=== PATIENT | female | born 1990 | race African-American/Black ===

== ENCOUNTER 2018-07-09 21:47 | Emergency (ER) | payer SELFPAY ==
[~2018-07-09] VITALS: Ht 157.5 cm; Wt 72.6 kg
--- NOTE | 2018-07-09 22:00 | NUR ---
ED Nurse Note: ambulated in to ER due to cough and headache x 2 days.
[2018-07-09 22:02] VITALS: BP 122/85
[2018-07-09] MEDS ORDERED: DEPO-PROVE150 MG/11 IM (22:02)
[2018-07-09] MEDS ORDERED: PROMETHAZINE-C118 M1 ORAL (22:35)
--- NOTE | 2018-07-09 22:36 | Emergency Room Report ---
History of Present Illness General Chief Complaint: Upper Respiratory Illness Source: Patient Present Illness HPI Is a 27-year-old female with no past medical history. She presents with chief complaint of a cough and headache. Onset for last 2 days. Worse with lying flat. No fever chills but no nausea no vomiting. Denies any other complaint. Allergies: Coded Allergies: GUAIFENESIN (Verified Allergy, Unknown, 07/09/18) Patient History Past Medical History: see triage record, old chart reviewed Past Surgical History: none Pertinent Family History: none Social History: Denies: smoking Last Menstrual Period: 06/23/18 Now: No Immunizations: other Reviewed Nursing Documentation: PMH: Agreed; PSxH: Agreed Nursing Documentation-PMH Past Medical History: No Stated History Review of Systems Eye: Denies: eye pain, blurred vision ENT: Denies: ear pain, nose congestion, throat swelling Respiratory: Reports: cough; Denies: shortness of breath Cardiovascular: Denies: chest pain, palpitations Gastrointestinal: Denies: abdominal pain, diarrhea, nausea, vomiting Musculoskeletal: Denies: back pain, joint pain Skin: Denies: rash Neurological: Denies: headache, numbness Endocrine: Denies: increased thirst, increased urine Hematologic/Lymphatic: Denies: easy bruising All Other Systems: negative except mentioned in HPI Physical Exam Vital Signs Date Time Temp Pulse Resp B/P (MAP) Pulse Ox O2 Delivery O2 Flow Rate FiO2 07/09/18 21:58 99.1 86 14 122/85 99 Room Air vitals jus Sp02 EP Interpretation: reviewed, normal General Appearance: well appearing, no apparent distress, alert Head: normocephalic, atraumatic Eyes: bilateral eye PERRL, bilateral eye EOMI ENT: hearing grossly normal, normal pharynx Neck: full range of motion, supple, no meningismus Respiratory: chest non-tender, lungs clear, normal breath sounds Cardiovascular #1: regular rate, rhythm, no murmur Gastrointestinal: normal bowel sounds, non tender, no mass, no organomegaly, no bruit, non-distended Musculoskeletal: back normal, gait/station normal, normal range of motion Psychiatric: mood/affect normal Skin: warm/dry Medical Decision Making Diagnostic Impression: Primary Impression: Upper respiratory infection Qualified Codes: J06.9 - Acute upper respiratory infection, unspecified ER Course Patient with upper respiratory infection and cough. She looks well. No evidence of meningitis, sepsis, pneumonia or other serious bacterial infection. Last Vital Signs Date Time Temp Pulse Resp B/P (MAP) Pulse Ox O2 Delivery O2 Flow Rate FiO2 07/09/18 22:10 83 14 Room Air 07/09/18 22:02 99.1 122/85 99 Status: unchanged Disposition: HOME, SELF-CARE Condition: Stable Scripts Codeine/Promethazine Hcl* (PROMETHAZINE-CODEINE SYRUP*) 118 Ml Syrup 5 ML ORAL Q6H PRN for For Cough, #118 ML 0 Refills Prov: Lito Mcleod MD 07/09/18 Patient Instructions: Upper Respiratory Infection, Adult Additional Instructions: Increase fluids. Follow-up with your doctor as needed in 7 days if not better. Return if worse. Lito Mcleod MD Jul 09, 2018 22:36
[2018-07-09 22:38] VITALS: BP 122/85
--- NOTE | 2018-07-09 22:39 | NUR ---
ED Nurse Note: Pt cleared by health care Provider for discharge. DC instructions/prescription was given and explained to pt and verbalized understanding of teachings. All medical deviecs such as ID band removed. Pt is AAO x4, ambulatory and left with all personal belongings.
== END 2018-07-09 22:38 | disposition home or self-care (01) ==
LOC: EMR 22:30
DX: J06.9 Acute upper respiratory infection, unspecified (principal); Z88.8 Allergy status to other drugs, medicaments and biological substances
CPT/HCPCS: 99281